=== PATIENT | female | born 1940 | race Caucasian/White ===

== ENCOUNTER 2022-11-19 22:08 | Emergency (ER) | payer OTHER, BC ==
[2022-11-19 22:33] VITALS: BP 131/72; PULSE 89; RESP 20; TEMP 98.1; BMI 20.3
== END 2022-11-20 01:00 | disposition home or self-care (01) ==
LOC: JER 22:08
DX: R07.0 Pain in throat (principal); R68.2 Dry mouth, unspecified
CPT/HCPCS: 99282-25